=== PATIENT | female | born 1990 | race African-American/Black ===

== ENCOUNTER 2019-05-26 13:22 | Outpatient (CLI) | payer OTHER ==
[2019-05-26 14:55] LABS: PTT 27.4 SEC (22.9-36.1); Prothrombin Time 12.7 SEC (12.0-14.7)
[2019-05-26 15:10] LABS: ALT (SGPT) 7 U/L (8-55); AST (SGOT) 11 U/L (5-34); Albumin 4.1 g/dL (3.5-5.0); Alkaline Phosphatase 61 U/L (40-150); Anion Gap 13 mmol/L (10-20); BUN (Urea Nitrogen) 10 mg/dL (7.0-18.7); Bilirubin, Total 0.3 mg/dL (0.2-1.2); Calc. Creatinine Clearance 0 mL/min (70-130); Calcium 10.3 mg/dL (7.8-10.44); Carbon Dioxide 25 mmol/L (22-29); Chloride 104 mmol/L (98-107); Estimated GFR-MDRD Greater than 90; Globulin 4.1 g/dL (2.4-3.5); Glucose 81 mg/dL (70-105); Potassium 4.1 mmol/L (3.5-5.1); Protein, Total 8.2 g/dL (6.0-8.3); Sodium 138 mmol/L (136-145)
[2019-05-26 15:17] LABS: #Eosinphils 0.2 thou/uL (0.0-0.7); #Lymphocytes 2.9 thou/uL (1.20-3.40); #Monocytes 0.5 thou/uL (0.11-0.59); #Neutrophils 4.1 thou/uL (1.40-6.50); %Basophils 0.5 % (0.0-1.0); %Eosinophils 2.8 % (0.0-10.0); %Lymphocytes 37.3 % (21.0-51.0); %Monocytes 6.1 % (0.0-10.0); %Neutrophils 53.4 % (42.0-75.0); Anisocytosis SLIGHT = 6-15 cells (100X) (0-5/hpf); Hemoglobin 11.4 g/dL (12.0-16.0); Hypochromia SLIGHT = 6-15 cells (100X) (0-5/hpf); MDiff Complete? YES; Mean Corpuscular HGB CONC 29.6 g/dL (32.0-36.0); Mean Corpuscular Volume 71.1 fL (78.0-98.0); Mean Platelet Volume 9.3 fL (7.4-10.4); Platelet Count 382 thou/uL (130-400); Platelet Morphology Comment Appears Adequate; RBC Distribution Width 15.8 % (11.5-14.5); Red Blood Cell (RBC) Count 5.42 mill/uL (4.20-5.40); White Blood Cell (WBC) Count 7.6 thou/uL (4.8-10.8)
== END 2019-05-26 13:23 | disposition home or self-care (01) ==
LOC: LABBT 13:22
PROVIDERS: ATTEND Internal Medicine Cardiovascular Disease
DX: Z01.812 Encounter for preprocedural laboratory examination (principal); R94.39 Abnormal result of other cardiovascular function study
CPT/HCPCS: 80053; 85025; 85610; 85730

== ENCOUNTER → 2019-06-03 | Day surgery (SDC) | payer OTHER ==
[2019-05-26 13:38] VITALS: BMI 35.7
[~2019-06-03] MED LIST: Fentanyl 100 MCG/2 ML VIAL ONE; Iopamidol 370 76% 100 ML VIAL ONE; Lidocaine 1% (PF) 30 ML VIAL ONE; Midazolam HCl 2 mg/2 ml Vial ONE
[2019-06-03 07:34] LABS: Cardiac Risk 5.1 (Less than 4.5)
== END ==
LOC: CCL 05:35
PROVIDERS: ATTEND Internal Medicine Cardiovascular Disease
PROC: 4A023N7 Measurement of Cardiac Sampling and Pressure, Left Heart, Percutaneous Approach (ICD-10-PCS; principal; 2019-06-03)
PROC: B2001ZZ Plain Radiography of Single Coronary Artery using Low Osmolar Contrast (ICD-10-PCS; principal; 2019-06-03)
DX: R07.9 Chest pain, unspecified (principal); F17.210 Nicotine dependence, cigarettes, uncomplicated
CPT/HCPCS: 76942; 80061; 93458; 99152; 99153; C1769; J1644; J2001; J2250; J3010; Q9967

== ENCOUNTER 2019-06-23 13:57 | Outpatient (CLI) | payer OTHER ==
--- NOTE | 2019-06-23 15:12 | ULT ---
TRANSABDOMINAL AND TRANSVAGINAL PELVIC ULTRASOUND WITH TAYLOR SCALE, COLOR FLOW AND SPECTRAL DOPPLER IM AGIN06/23/19 HISTORY: Left ovarian cyst. COMPARISON: 05/18/19. FINDINGS: The uterus measures 7.1 x 4.2 x 4 cm. No focal mass or endometrial fluid. The endometrium measures 6 mm in thickness. The right ovary measures 3.5 x 2.2 x 2.8 cm and the left ovary measures 3.8 x 2 x 3.5 cm. Flow is dem onstrated to both ovaries. The probable hemorrhagic cyst in the left ovary noted on the previous exam currently is smaller and measures about 1.5 x 1.1 x 1.3 cm. There is a small amount of free fluid in the cul-de-sac and the vaginal canal. IMPRESSION: 1. Mild interval reduction in size of the left ovarian hemorrhagic cyst. 2. Small amount of free fluid in the cul-de-sac and vaginal canal. POS: OFF
== END 2019-06-23 13:58 | disposition home or self-care (01) ==
LOC: SCSULT 13:57
PROVIDERS: ATTEND Nurse Practitioner
DX: N83.202 Unspecified ovarian cyst, left side (principal)
CPT/HCPCS: 76856

== ENCOUNTER 2019-07-17 13:38 | Emergency (ER) | payer OTHER ==
[2019-07-17 14:12] LABS: #Eosinphils 0.2 thou/uL (0.0-0.7); #Lymphocytes 2.8 thou/uL (1.20-3.40); #Monocytes 0.3 thou/uL (0.11-0.59); %Basophils 0.6 % (0.0-1.0); %Eosinophils 2.3 % (0.0-10.0); %Lymphocytes 38.7 % (21.0-51.0); %Monocytes 4.3 % (0.0-10.0); %Neutrophils 54.1 % (42.0-75.0); Hemoglobin 10.8 g/dL (12.0-16.0); Mean Corpuscular HGB CONC 30.8 g/dL (32.0-36.0); Mean Corpuscular Hemoglobin 21.6 pg (27.0-31.0); Mean Corpuscular Volume 70.1 fL (78.0-98.0); Mean Platelet Volume 8.7 fL (7.4-10.4); Platelet Count 365 thou/uL (130-400); RBC Distribution Width 15.7 % (11.5-14.5); Red Blood Cell (RBC) Count 4.98 mill/uL (4.20-5.40); White Blood Cell (WBC) Count 7.3 thou/uL (4.8-10.8)
[2019-07-17] MEDS ORDERED: HYDROcodone/Acetaminophen 5/325 mg Tablet ONE (16:29)
[2019-07-17 16:45] LABS: Bacteria/HPF None Seen HPF (None Seen); Bilirubin Negative (Negative); Blood, Urine 2+ (Negative); Clarity Clear (Clear); Glucose, Urine (Dipstick) Normal (Negative); Leukocyte Negative Leu/uL (Negative); Nitrite Negative (Negative); Protein, Urine (Dipstick) 10 mg/dL (Neg-Trace); Urobilinogen Normal mg/dL (Less than 2); WBC/HPF 0-3 HPF (0-3)
[2019-07-17 16:49] LABS: Pregnancy Test - Urine (BHCG) Negative (Negative); Pregu Control Background? CLEAR/WHITE (CLR/WHITE); Pregu Control Bar Appear? YES (CONTROL BAR); Specific Gravity 1.025 (1.002-1.036)
--- NOTE | 2019-07-17 17:19 | ULT ---
US Pelvic Transvag W Doppler HISTORY: Heavy bleeding and cramping. COMPARISON: 06/23/2019 study. FINDINGS: Real-time imaging of the pelvis was obtained both transabdominally as well as with an endov aginal probe. The uterus measures approximately 7 cm in length. Endometrium is thickened at 7 mm. A small follicles seen involving the right adnexa, the left ovary is normal in appearance. Doppler evaluation with spectral analysis: Normal flow shown to the adnexa. Trace free fluid is noted. IMPRESSION: Slightly thickened endometrium no fibroids identified. No other significant findings.
== END 2019-07-17 18:30 | disposition home or self-care (01) ==
LOC: ERS 13:38
DX: N93.8 Other specified abnormal uterine and vaginal bleeding (principal); F17.290 Nicotine dependence, other tobacco product, uncomplicated
CPT/HCPCS: 36415; 76856; 81003; 81015; 81025; 84702; 85025; 86850; 86900; 86901

== ENCOUNTER 2019-09-24 07:24 | Outpatient (CLI) | payer OTHER ==
[2019-09-24 12:41] LABS: Hemoglobin 10.2 g/dL (12.0-16.0); Mean Corpuscular HGB CONC 30.5 g/dL (32.0-36.0); Mean Corpuscular Hemoglobin 21.5 pg (27.0-31.0); Mean Corpuscular Volume 70.5 fL (78.0-98.0); Mean Platelet Volume 9.3 fL (7.4-10.4); Platelet Count 333 thou/uL (130-400); RBC Distribution Width 15.3 % (11.5-14.5); Red Blood Cell (RBC) Count 4.76 mill/uL (4.20-5.40); White Blood Cell (WBC) Count 9.4 thou/uL (4.8-10.8)
[2019-09-24 13:00] LABS: BHCG - Serum Negative (NEGATIVE); Pregs Control Background? CLEAR/WHITE (CLR/WHITE); Pregs Control Bar Appear? YES (CONTROL BAR)
== END 2019-09-24 07:25 | disposition home or self-care (01) ==
LOC: LABBT 07:24
PROVIDERS: ATTEND Obstetrics & Gynecology
DX: Z01.812 Encounter for preprocedural laboratory examination (principal); N83.209 Unspecified ovarian cyst, unspecified side; R10.2 Pelvic and perineal pain; G89.29 Other chronic pain
CPT/HCPCS: 84703; 85027; 86850; 86900; 86901

== ENCOUNTER 2019-09-29 06:04 | Day surgery (SDC) | payer OTHER ==
[2019-09-24 11:46] VITALS: BMI 36.1
--- NOTE | 2019-09-28 17:32 | HP ---
DATE OF SERVICE: 09/29/2019 REASON FOR ADMISSION: Chronic pelvic pain, history of ovarian cyst, possible history of endometriomas. SCHEDULED PROCEDURE: Laparoscopy, excision of endometriosis, possible ovarian cyst excision, and chromotubation. HISTORY OF PRESENT ILLNESS: Ms. Arzate is a 29-year-old, G0 with a long history of recurrent pelvic pain with ovarian cyst. She had one back in August on latest ultrasound and resolved, her pain persists. She desires diagnostic laparoscopy and surgical management. The patient is also planning for . She denies STD history. ATTORNEY GENERAL HISTORY: As noted. Negative Pap in 2017. PAST MEDICAL HISTORY: Ovarian cyst and pelvic pain. SURGICAL HISTORY: Knee arthroscopy. ALLERGIES: NONE. MEDICATIONS: None. SOCIAL HISTORY: Denies tobacco, alcohol, or IV drug use. FAMILY HISTORY: Noncontributory. REVIEW OF SYSTEMS: Noncontributory. PHYSICAL EXAMINATION: GENERAL: Black female. VITAL SIGNS: Height 5 feet 5 inches, weight 216, BMI 35, blood pressure 106/76, pulse 57, respirations 18. HEENT: Within normal limits. LUNGS: Clear to auscultation bilaterally. HEART: Regular rhythm. BREASTS: No masses bilaterally. ABDOMEN: Soft, nontender. No rebound or guarding. GENITALIA: Vulva, without lesions. Vagina, without discharge. Cervix, nulliparous. Uterus, anteverted, small adnexa, no masses. Tender on exam, left greater than right. EXTREMITIES: No clubbing, cyanosis, or edema. IMPRESSION: Long history of recurrent ovarian cyst, chronic pelvic pain, suspicious for endometriosis and endometrioma. PLAN: Diagnostic laparoscopy, possible excision of endometriosis, chromotubation. The patient understands risks and benefits of procedure. We will administer appropriate antibiotic and DVT prophylaxis. Job ID: [id number]
[2019-09-29] MEDS ORDERED: Gabapentin 300 MG CAP ONE (06:23)
[2019-09-29] MEDS ORDERED: CeleCOXIB 100 MG CAP ONE (06:24)
[2019-09-29] MEDS ORDERED: Famotidine/PF 20 mg/2ml Vial ONE (06:24)
[2019-09-29] MEDS ORDERED: Midazolam HCl 2 mg/2 ml Vial ONE (06:48)
[2019-09-29] MEDS ORDERED: Fentanyl 100 MCG/2 ML VIAL ONE ×3 (06:48→09:24)
[2019-09-29] MEDS ORDERED: Methylene Blue 50 MG/10 ML AMPUL ONE (06:52)
[2019-09-29] MEDS ORDERED: Bupivacaine PF 0.5% 30 ML VIAL ONE (06:52)
[2019-09-29] MEDS ORDERED: Lidocaine 1% w/Epinephrine 1:100K 20 ML VIAL ONE (07:00)
[2019-09-29] MEDS ORDERED: HYDROcodone/Acetaminophen 5/325 mg Tablet ONE (10:24)
[2019-09-29] MEDS ORDERED: Dexamethasone 20 MG/5 ML VIAL ONE (10:25)
[2019-09-29] MEDS ORDERED: PROPOFOL 200 MG/20 ML VIAL ONE (10:25)
[2019-09-29] MEDS ORDERED: Ondansetron PF 4 MG/2 ML Vial ONE (10:25)
[2019-09-29] MEDS ORDERED: Glycopyrrolate 0.2 MG/ML 5 ML SYRINGE ONE (10:25)
[2019-09-29] MEDS ORDERED: Lidocaine 1% PF 5 ML VIAL ONE (10:25)
[2019-09-29] MEDS ORDERED: Rocuronium Bromide 10 MG/ML (10ML VIAL) ONE (10:25)
--- NOTE | 2019-09-29 11:23 | OP ---
DATE OF PROCEDURE: 09/29/2019 PREOPERATIVE DIAGNOSIS: Chronic pelvic pain, suspicious for endometriosis. POSTOPERATIVE DIAGNOSES: 1. Right uterosacral ligament endometriosis. 2. Anterior cul-de-sac endometriosis. 3. Patent fallopian tubes bilaterally. 4. Otherwise normal-appearing tubes and ovaries bilaterally. PROCEDURES PERFORMED: Da Rosie robot-assisted right uterosacral endometriosis excision, midline anterior cul-de-sac endometriosis excision with chromotubation. [employer]CISION [employer] WORKER: KIRK Lam. ANESTHESIA: General endotracheal. ESTIMATED BLOOD LOSS: Less than 10 mL. COMPLICATIONS: None. DRAINS: Melvin to gravity, removed at the end of the procedure. MEDICATIONS: 2 g Ancef preincision. DVT PROPHYLAXIS: SCDs. OPERATIVE FINDINGS: 1. Extensive area of endometriosis involving the right uterosacral ligament excised with identification of uterine vessels and ureter well lateral to the area of excision. 2. Anterior cul-de-sac endometriosis with distortion of the normal anterior cul-de-sac geometry excised without injury to the bladder. 3. Chromotubation with prompt bilateral fill and spill noted. 4. No other significant areas of endometriosis noted in the pelvis including the rectosigmoid. DISPOSITION: Recovery room in good condition. DESCRIPTION OF PROCEDURE: After obtaining appropriate informed consent, the patient was taken to the operating room, where general endotracheal anesthesia was achieved without difficulty. The patient was prepped and draped in dorsal lithotomy in Colt stirrups. Sliding speculum was placed in the vagina. Cervix identified and grasped with single-tooth tenaculum. Uterus sounded to 8 cm and dilated up to the appropriate level for diagnostic MANE placement. The small diagnostic 6 cm MANE was placed without difficulty. Tenaculum and speculum were removed. Melvin catheter was placed and drained clear fluid, and bogger operator turned his attention to abdominal portion of the procedure. 5 mL of Marcaine was injected at the base of umbilicus, and an 8 mm skin incision was made. Veress needle was placed inside the abdominal cavity and insufflation was carried out with carbon dioxide at max pressure of 15. Volume approximately 2.75 L. 8 mm trocar was then placed and the da Rosie camera was placed inside, and the patient was placed in steep Trendelenburg position. Findings as noted in the operative findings were noted. Right and left lateral da Rosie robot trocars were placed lateral to epigastric vessels and a 5 mm parts room assistant port in the right upper quadrant. Da Rosie robot was docked with monopolar scissors in the right hand and Bipolar [place] forceps in the left. Findings as noted in the operative findings were noted. The ureter was well identified throughout its course on the right side of the pelvis and uterosacral ligament endometriosis was noted to be well medial to this. The peritoneum was opened and the area of endometriosis along the uterosacral ligament at its insertion into the cervix on the patient's right was excised and good hemostasis was noted. This specimen was removed and sent for pathologic analysis. Further inspection of the ovary, tube, and ovarian fossa on the right revealed no significant areas of endometriosis. Inspection on the patient's left revealed no significant areas of endometriosis. No evidence of endometriosis on the ovary bilaterally was noted. The anterior cul-de-sac was somewhat distorted with windows, these were photo documented. There was also some distortion of the left round ligament in its insertion into the uterus. Area of suspected endometriosis anteriorly was excised taking care to avoid trauma to the bladder. This was again removed for pathology and sent for pathologic analysis. Suction irrigation was carried out. No other areas of abnormalities were noted. Chromotubation was carried out. Prompt fill and spill of blue stained fluid was noted bilaterally and photo documented. Inspection of the rectosigmoid revealed no areas of endometriosis that were obvious. Da Rosie instruments were removed. The Da Rosie robot undocked. The abdomen was desufflated of carbon dioxide. Trocars were removed x4. Skin was reapproximated x4 using 4-0 Monocryl and Dermabond. MANE manipulator was removed. Melvin removed. The patient awakened, extubated, and taken to the recovery room in good condition. Job ID: [id number]
== END 2019-09-29 11:06 | disposition home or self-care (01) ==
LOC: SDC 06:04
PROVIDERS: ATTEND Obstetrics & Gynecology
PROC: 0UBF4ZZ Excision of Cul-de-sac, Percutaneous Endoscopic Approach (ICD-10-PCS; principal; 2019-09-29)
DX: N80.3 Endometriosis of pelvic peritoneum (principal)
CPT/HCPCS: 88305; J0131; J0690; J1100; J2001; J2250; J2405; J2704; J3010; Q9968; S0020; S0028